=== PATIENT | female | born 1995 | race African-American/Black ===

== ENCOUNTER 2019-01-16 22:08 | Emergency (ER) | payer MEDICAID ==
[~2019-01-16] VITALS: Ht 177.8 cm; Wt 70.8 kg
[2019-01-16 22:57] LABS: Urine Bacteria NONE SEEN /hpf (None Seen); Urine Blood 2+ /uL (Negative); Urine Mucus FEW (None Seen); Urine Specific Gravity 1.035 (1.001-1.035); Urine WBC 2 /hpf (0 - 5)
[2019-01-17 03:55] LABS: Albumin 3.8 g/dL (3.4-5.0); BUN/Creatinine Ratio 20.5; Calcium 8.9 mg/dL (8.5-10.1); Potassium 3.4 mmol/L (3.5-5.1)
[2019-01-17 03:57] LABS: Bilirubin, Total 0.2 mg/dL (0.2-1.0); Total Protein 8.1 g/dL (6.4-8.2)
[2019-01-17] MEDS ORDERED: MAGNESIUM CITRATE SOLUTION 300 ML BTL PO ONE (04:00)
[2019-01-17 04:15] LABS: Hemoglobin 7.2 g/dL (12.2-16.2)
[2019-01-17 04:17] LABS: Hematocrit 26.1 % (36.0-46.0); Mean Corpuscular Hemoglobin 15.7 pg (28.0-32.0); Mean Corpuscular Hgb Conc. 27.5 g/dL (32.0-36.0); Mean Corpuscular Volume 57.1 fL (80.0-100.0); Platelet Count (auto) 485 10^3/uL (140-450); Red Blood Cells 4.57 10^6/uL (4.0-5.20); White Blood Cell 5.8 10^3/uL (4.4-10.8)
[2019-01-17 04:23] VITALS: BP 102/54
[2019-01-17 04:33] LABS: Red Cell Distribution Width 20.9 % (11.8-14.3)
[2019-01-17 04:34] LABS: Band Neutrophils % (manual) 0; Basophils % (manual) 0 (0.0-2.0); Blast Cells 0; Metamyelocytes % 0; Myelocytes % 0; Promyelocytes % 0; Reactive Lymphocytes 0
[2019-01-17 05:11] LABS: INR 0.94 (0.9-1.15); Prothrombin Time 10.2 sec (9.06-12.60)
[2019-01-17 06:15] LABS: Eosinophils % (manual) 1 (0-7); Lymphocytes % (manual) 56 (10.0-50.0); Monocytes % (manual) 5 (0-12)
== END 2019-01-17 05:18 | disposition home or self-care (01) ==
LOC: ER 22:15
DX: K56.41 Fecal impaction (principal); N93.9 Abnormal uterine and vaginal bleeding, unspecified
CPT/HCPCS: 36415; 74176; 80053; 81001; 81025; 85007; 85027; 85610

== ENCOUNTER 2020-04-19 19:20 | Emergency (ER) | payer SELFPAY ==
[~2020-04-19] VITALS: Ht 177.8 cm; Wt 52.2 kg
[2020-04-19 22:37] LABS: Hematocrit 22.6 % (36.0-46.0); Mean Corpuscular Hemoglobin 15.6 pg (28.0-32.0); Mean Corpuscular Hgb Conc. 27.9 g/dL (32.0-36.0)
[2020-04-19 22:39] LABS: Mean Corpuscular Volume 55.8 fL (80.0-100.0); Platelet Count (auto) 468 10^3/uL (140-450); Red Blood Cells 4.05 10^6/uL (4.0-5.20); White Blood Cell 5.9 10^3/uL (4.4-10.8)
[2020-04-19 22:45] LABS: Red Cell Distribution Width 21.1 % (11.8-14.3)
[2020-04-19 22:45] LABS: Urine Bacteria FEW /hpf (None Seen); Urine Blood 3+ /uL (Negative); Urine Mucus FEW (None Seen); Urine Specific Gravity 1.017 (1.001-1.035); Urine WBC 30 /hpf (0 - 5); Urine WBC Clumps PRESENT /hpf (None Seen)
[2020-04-19 22:47] LABS: Hemoglobin 6.3 g/dL (12.2-16.2)
[2020-04-19 22:48] LABS: Band Neutrophils % (manual) 0; Basophils % (manual) 0 (0.0-2.0); Blast Cells 0; Eosinophils % (manual) 0 (0-7); Metamyelocytes % 0; Myelocytes % 0; Promyelocytes % 0; Reactive Lymphocytes 0
[2020-04-19 22:53] LABS: INR 0.97 (0.9-1.15); Partial Thromboplastin Time 24.8 sec (23.0-31.2)
[2020-04-19 22:54] LABS: Albumin 3.6 g/dL (3.4-5.0); Calcium 8.8 mg/dL (8.5-10.1); Potassium 4.1 mmol/L (3.5-5.1)
[2020-04-19 22:57] LABS: BUN/Creatinine Ratio 15.6
[2020-04-19 23:06] LABS: Lymphocytes % (manual) 49 (10.0-50.0); Monocytes % (manual) 3 (0-12)
[2020-04-19 23:08] LABS: Bilirubin, Total 0.3 mg/dL (0.2-1.0); Total Protein 7.6 g/dL (6.4-8.2)
[2020-04-20] MEDS ORDERED: SODIUM CHLORIDE 0.9% 1,000 ML IV ONE (00:30)
[2020-04-20 06:20] VITALS: BP 106/57
[2020-04-20 06:40] VITALS: BP 103/60
[2020-04-20 09:31] VITALS: BP 94/47
[2020-04-20 14:38] LABS: Hematocrit 28.5 % (36.0-46.0)
[2020-04-20 14:39] LABS: Hemoglobin 8.3 g/dL (12.2-16.2)
[2020-04-20 15:34] VITALS: BP 105/57
== END 2020-04-20 15:45 | disposition home or self-care (01) ==
LOC: ER 19:20
DX: N93.8 Other specified abnormal uterine and vaginal bleeding (principal); D64.9 Anemia, unspecified
CPT/HCPCS: 36415; 36430; 76830; 76856; 80053; 81001; 84702; 85007; 85014; 85018; 85027; 85610; 85730; 86850; 86900; 86901; 86920; 96360; 99285; P9016

== ENCOUNTER 2020-10-04 10:37 | Emergency (ER) | payer SELFPAY ==
[~2020-10-04] VITALS: Ht 177.8 cm; Wt 68.9 kg
[2020-10-04 11:20] VITALS: BP 110/60
[2020-10-04 12:05] LABS: Urine Bacteria FEW /hpf (None Seen); Urine Blood TRACE /uL (Negative); Urine Mucus MODERATE (None Seen); Urine Specific Gravity 1.035 (1.001-1.035); Urine WBC 19 /hpf (0 - 5)
[2020-10-04] MEDS ORDERED: PHENAZOPYRIDINE HCL 100 MG TAB PO ONE (12:15)
== END 2020-10-04 12:33 | disposition home or self-care (01) ==
LOC: ER 10:37
DX: N30.00 Acute cystitis without hematuria (principal); Z32.02 Encounter for pregnancy test, result negative
CPT/HCPCS: 81001; 81025

== ENCOUNTER 2020-10-22 14:19 | Emergency (ER) | payer SELFPAY ==
[~2020-10-22] VITALS: Ht 177.8 cm; Wt 63.5 kg
[2020-10-22 14:49] LABS: Mean Corpuscular Hemoglobin 18.7 pg (28.0-32.0); Mean Corpuscular Hgb Conc. 29.5 g/dL (32.0-36.0)
[2020-10-22 14:52] LABS: Hematocrit 29.1 % (36.0-46.0); Hemoglobin 8.6 g/dL (12.2-16.2); Mean Corpuscular Volume 63.2 fL (80.0-100.0); Platelet Count (auto) 480 10^3/uL (140-450); Red Blood Cells 4.61 10^6/uL (4.0-5.20); White Blood Cell 3.5 10^3/uL (4.4-10.8)
[2020-10-22 15:01] LABS: Red Cell Distribution Width 20.6 % (11.8-14.3)
[2020-10-22 15:03] LABS: Band Neutrophils % (manual) 0; Basophils % (manual) 0 (0.0-2.0); Blast Cells 0; Metamyelocytes % 0; Myelocytes % 0; Promyelocytes % 0; Reactive Lymphocytes 0
[2020-10-22 15:35] LABS: Eosinophils % (manual) 3 (0-7); Lymphocytes % (manual) 43 (10.0-50.0); Monocytes % (manual) 10 (0-12)
[2020-10-22 16:27] VITALS: BP 112/62
== END 2020-10-22 17:27 | disposition home or self-care (01) ==
LOC: ER 14:19
DX: N93.9 Abnormal uterine and vaginal bleeding, unspecified (principal); D64.9 Anemia, unspecified
CPT/HCPCS: 36415; 76830; 76856; 84702; 85007; 85027; 86850; 86900; 86901

== ENCOUNTER 2021-11-28 18:06 | Emergency (ER) | payer MEDICAID ==
[~2021-11-28] VITALS: Ht 177.8 cm; Wt 59.0 kg
[2021-11-28] MEDS ORDERED: ALUM & MAG HYDROX-SIMETH LIQ(MAALOX) 30 ML PO ONE (18:30)
[2021-11-28 19:01] LABS: Nucleated Red Blood Cells % 0.1 %
[2021-11-28 19:02] LABS: Alanine Aminotransferase 15 U/L (13-56); Albumin 3.6 g/dL (3.4-5.0); Anion Gap 8 (5-15); Aspartate Aminotransferase 14 U/L (15-37); BUN/Creatinine Ratio 14.7; Blood Urea Nitrogen 10 mg/dL (7-18); Calcium 8.6 mg/dL (8.5-10.1); Carbon Dioxide 23 mmol/L (21-32); Chloride 109 mmol/L (98-107); GFR African American 133 mL/min; GFR Non-African American 110 mL/min; Glucose 82 mg/dL (74-106); Potassium 3.8 mmol/L (3.5-5.1); Sodium 140 mmol/L (136-145)
[2021-11-28 19:03] LABS: Basophils # (auto) 0.1 10 ^3/uL (0-0.2); Basophils % (auto) 1.1 % (0.0-2.0); Eosinophils # (auto) 0.1 10 ^3/uL (0-0.8); Eosinophils % (auto) 1.2 % (0.0-7.0); Hematocrit 23.9 % (36.0-46.0); Lymphocytes # (auto) 2.4 10 ^3/uL (0.4-5.4); Lymphocytes % (auto) 41.2 % (10.0-50.0); Mean Corpuscular Hemoglobin 16.4 pg (28.0-32.0); Mean Corpuscular Hgb Conc. 28.5 g/dL (32.0-36.0); Mean Corpuscular Volume 57.7 fL (80.0-100.0); Monocytes # (auto) 0.3 10 ^3/uL (0-1.3); Monocytes % (auto) 5.2 % (0.0-12.0); Neutrophils % (auto) 51.3 % (37.0-80.0); Red Blood Cells 4.13 10^6/uL (4.0-5.20); White Blood Cell 5.9 10^3/uL (4.4-10.8)
[2021-11-28 19:07] LABS: Alkaline Phosphatase 45 U/L (45-117); Bilirubin, Total 0.2 mg/dL (0.2-1.0); Total Protein 7.7 g/dL (6.4-8.2)
[2021-11-28 19:13] LABS: Hemoglobin 6.8 g/dL (12.2-16.2); Red Cell Distribution Width 20.6 % (11.8-14.3)
[2021-11-28 20:13] LABS: % Iron Saturation 2.5 % (15-50)
[2021-11-28 20:27] LABS: Ferritin 3.1 ng/mL (10-322); Folate (Folic Acid) 13.28 ng/mL (5.38-24)
[2021-11-28 21:17] VITALS: BP 122/32
[2021-11-28 21:32] VITALS: BP 105/49
[2021-11-28 22:06] VITALS: BP 104/58
== END 2021-11-28 23:00 | disposition home or self-care (01) ==
LOC: ER 18:06
DX: D64.9 Anemia, unspecified (principal)
CPT/HCPCS: 36415; 36430; 71045; 80053; 82607; 82728; 82746; 83540; 83550; 83615; 84484; 85025; 85045; 86850; 86900; 86901; 86920; 93005; 99285; J7030; P9016

== ENCOUNTER 2023-11-18 11:02 | Emergency (ER) | payer MEDICAID, OTHER ==
[~2023-11-18] VITALS: Ht 177.8 cm; Wt 68.7 kg
[2023-11-18 11:14] VITALS: BP 102/57; PULSE 77; RESP 18; O2SAT 98
[2023-11-18] MEDS ORDERED: NABU-72 PO (14:38)
== END 2023-11-18 14:47 | disposition home or self-care (01) ==
LOC: ER 11:02
DX: M79.671 Pain in right foot (principal); X58.XXXA Exposure to other specified factors, initial encounter; Y93.89 Activity, other specified; Y92.89 Other specified places as the place of occurrence of the external cause; Y99.8 Other external cause status
CPT/HCPCS: 73630

== ENCOUNTER 2024-06-21 00:16 | Emergency (ER) | payer OTHER ==
[~2024-06-21] VITALS: Ht 177.8 cm; Wt 63.6 kg
[~2024-06-21 00:16] MED LIST: NABU-72 PO
[2024-06-21 01:36] VITALS: BP 118/64; RESP 18; TEMP 98.3; O2SAT 98
[2024-06-21 01:56] VITALS: PULSE 63
== END 2024-06-21 01:58 | disposition home or self-care (01) ==
LOC: ER 00:16
DX: F41.0 Panic disorder [episodic paroxysmal anxiety] (principal); R07.89 Other chest pain
CPT/HCPCS: 93005

== ENCOUNTER 2025-07-13 17:37 | Emergency (ER) | payer OTHER ==
[~2025-07-13] VITALS: Ht 177.8 cm; Wt 72.1 kg
--- NOTE | 2025-07-13 19:19 | DVH ---
XY CERVICAL SPINE 3V Indication: injury and pain Comparison: None Findings: No acute displaced fracture or traumatic dislocation. No significant prevertebral soft tissue thickening. Mild degenerative changes of the cervical spine. Straightening reversal of cervical lordosis. IMPRESSION: No acute displaced fracture. If there is persistent clinical concern for acute fracture, recommend CT for further evaluation.
[2025-07-13] MEDS: KETOROLAC TROMETH 60MG/2ML VIAL IM ONE (19:20)
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
[2025-07-13 19:40] VITALS: O2SAT 98
[2025-07-13 20:38] VITALS: BP 111/64; PULSE 76; RESP 18; TEMP 98.9; O2SAT 100
== END 2025-07-13 20:52 | disposition home or self-care (01) ==
LOC: ER 17:37
DX: S13.4XXA Sprain of ligaments of cervical spine, initial encounter (principal); S93.402A Sprain of unspecified ligament of left ankle, initial encounter; S39.012A Strain of muscle, fascia and tendon of lower back, initial encounter; Z79.899 Other long term (current) drug therapy; V89.2XXA Person injured in unspecified motor-vehicle accident, traffic, initial encounter; Y93.89 Activity, other specified; Y92.488 Other paved roadways as the place of occurrence of the external cause; Y99.8 Other external cause status
CPT/HCPCS: 72040; 72100; 73610; 96372; 99284; J1885